=== PATIENT | male | born 1980 | race Two or more races ===

== ENCOUNTER 2021-05-06 09:28 | Emergency (ER) | payer OTHER ==
[2021-05-06 10:55] LABS: BASOPHIL 0.2 % (0-2); EOSINOPHIL 1.7 % (0-5); HCT 47.2 % (42.0-52.0); HGB 15.9 g/dl (13.2-18.0); LYMPHOCYTE 27.8 % (15-48); MCH 27.9 pg (25.0-31.0); MCHC 33.7 g/dL (32.0-36.0); MONOCYTE 10.3 % (0-12); NEUTROPHIL 59.1 % (41-80); NRBC 0; PLT 265 K/uL (150-400); RBC 5.69 M/uL (4.70-6.00); RDW 12.7 % (11.5-14.0); WBC 5.4 K/uL (4.0-10.5)
[2021-05-06 11:18] LABS: ALBUMIN 4.4 g/dL (3.4-5.0); BILIRUBIN - TOTAL 1.6 mg/dL (0.2-1.0); CREATININE 0.84 mg/dL (0.67-1.17); GLOBULIN (CALCULATION) 3.7 g/dL; POTASSIUM 4.5 mmol/L (3.5-5.1); TOTAL PROTEIN 8.1 g/dL (6.4-8.2)
[2021-05-06 11:57] LABS: CORONAVIRUS 2019 SARS-COV-2 NEGATIVE (NEGATIVE); INFLUENZA A NAA NEGATIVE (NEGATIVE)
== END 2021-05-06 11:56 | disposition home or self-care (01) ==
LOC: FER 09:28
PROVIDERS: Internal Medicine
DX: R51.9 Headache, unspecified (principal); E78.5 Hyperlipidemia, unspecified; J45.909 Unspecified asthma, uncomplicated; R07.9 Chest pain, unspecified; Z20.822 Contact with and (suspected) exposure to COVID-19
CPT/HCPCS: 36415; 71045; 80053; 80061; 84145; 84484; 85025; 93005; 96372; J1885; J3030; U0002